=== PATIENT | female | born 1995 | race Caucasian/White ===

== ENCOUNTER 2022-05-16 21:31 | Emergency (ER) | payer SELFPAY ==
[2022-05-16 21:46] VITALS: BP 166/100; RESP 18; TEMP 36.8; O2SAT 96
--- NOTE | 2022-05-16 22:06 | ED.PSYCH ---
HPI - Psych General Chief Complaint: Psychiatric Problem/Disorder Stated Complaint: Mental Health Time Seen by Provider: 05/16/22 21:52 History of Present Illness HPI Narrative: This 26-year-old patient is brought in here by police for psychiatric evaluation. The patient states that she does not want to be here and was taken here by police only because her mother called the police and that she does not get along with her mother. Her father is currently working and from her mother. She states that she has stated his place at times but does not want to be any longer in the same apartment as her mother. There is report that the patient stated that she wanted to . When I asked for this she denies stating anything like that. She states that she has been hospitalized for her mood a couple years ago but denies ever attempting to harm herself and states that she does not have any plan to harm herself currently. She does state that she wants some help but she does not want to be in this emergency department. She denies using any street drugs or alcohol recently but states that she has used these in the past but not in the last couple days. She is not on any anti a depressant or other psychotropic medications. She does take an acne medication but otherwise no other meds. Review of Systems Status of ROS: Reports: 10 or more systems reviewed and unremarkable except as noted in History and below Narrative: Constitutional: No fevers, no weight gain or loss. Eyes: No discharge. No vision changes. HENT: No congestion, no sore throat, no ear pain. Cardiovascular: No chest pain, no palpitations. Respiratory: No shortness of breath, no wheezes, no cough. Gastrointestinal: No abdominal pain, no vomiting, no diarrhea. Genitourinary: No dysuria, no hematuria. Musculoskeletal: Normal range of motion. Skin: No rashes, no pruritis. On medication for acne. Neurological: No dizziness, weakness, sensory change, speech change. Endo/Heme/Allergies: No bruising or bleeding. No polydipsia. Pysch: no suicidality, no anxiety, no insomnia. She states that she does not need to be here and simply does not want to be in the same living situation as her mother as she does not get along with her. All other systems reviewed and are negative. PFSH PFSH Social History Smoking Status: Unknown if ever smoked Exam Narrative: Exam Narrative: Constitutional: Well-developed, well-nourished. HEENT: Normocephalic, atraumatic. Neck: Normal range of motion. Nontender. Supple. Heart: Regular. No murmurs. Normal rate. Intact distal pulses. Lungs: Clear to auscultation. No chest discomfort. No wheezes, rhonchi, or rales. Abdomen: Normal bowel sounds. Nontender. No rebound tenderness. Genitalia: Deferred. Back: No midline tenderness. Normal range of motion. Extremities: Normal range of motion. No injury. Skin: Intact. No rash. Warm. No erythema or pallor. Neurologic: No altered sensation. No weakness. Alert and oriented. Psychiatric: She denies suicidality. She repeatedly states that she does not want to be here and wants to go. Nursing notes and vitals signs are reviewed. Const: Vital Signs, click to edit/add: Vital Signs - 24 hr 05/16/22 21:46 Temperature 98.2 F Respiratory Rate 18 Blood Pressure [Ri ght Upper Arm] 166/100 H Pulse Oximetry 96 Oxygen Delivery Me thod Room Air Course Vital Signs Vital signs: Initial Vital Signs Temperature 98.2 F 05/16/22 21:46 Temperature Source Temporal Artery Scan 05/16/22 21:46 Respiratory Rate 18 05/16/22 21:46 Blood Pressure 166/100 H 05/16/22 21:46 Blood Pressure Mean 122 05/16/22 21:46 Pulse Oximetry 96 05/16/22 21:46 Oxygen Delivery Method Room Air 05/16/22 21:46 Vital Signs Temperature 98.2 F 05/16/22 21:46 Respiratory Rate 18 05/16/22 21:46 Blood Pressure 166/100 H 05/16/22 21:46 Pulse Oximetry 96 05/16/22 21:46 Oxygen Delivery Method Room Air 05/16/22 21:46 Temperature 98.2 F 05/16/22 21:46 Respiratory Rate 18 05/16/22 21:46 Blood Pressure 166/100 H 05/16/22 21:46 Pulse Oximetry 96 05/16/22 21:46 Oxygen Delivery Method Room Air 05/16/22 21:46 MDM - Psych MDM Narrative Medical decision making narrative: This patient is brought in by police department for psychiatric evaluation. The police were called by the patient's mother. The patient is rather animated that she does not need to be here and wants to go. I stated that we need to do our job in do an appropriate enough evaluation. She did agree to have a [facility] mental assessment. Collateral information is acquired from the patient's father who states that the mother truly is the 1 who is more in need of psychiatric evaluation and treatment. The patient herself denies any suicidality and is okay to be discharged from here. She will go with her friend and be able to stay there for a while until her father is home from work where she can join with him. Arrangements are also made for follow-up therapy appointment. Discharge Plan Discharge Clinical Impression: Encounter for psychiatric assessment Patient Disposition: Home w/ Parent or Adult Condition: Stable Additional Instructions: Follow-up with therapy arrangements as scheduled. Return if worsening. Follow Up/Referrals: Provider,Not a Local [Primary Care Provider] - Stand Alone Forms: [facility] Info Instructions
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
--- NOTE | 2022-05-16 23:58 | ED.NURSE ---
DC instructions reviewed with pt, pt verbalized understanding. As pt walked out of ER, she threw DC instructions in the garbage before heading to the lobby.
[2022-05-16 23:59] VITALS: BP 144/83; PULSE 94; O2SAT 98
== END 2022-05-16 23:59 | disposition home or self-care (01) ==
PROVIDERS: Emergency Provider Emergency Medicine Emergency Medical Services
DX: F99 Mental disorder, not otherwise specified (principal); Z04.6 Encounter for general psychiatric examination, requested by authority
CPT/HCPCS: 99283; 99284

== ENCOUNTER 2023-09-04 22:40 | Emergency (ER) | payer BC, SELFPAY ==
[2023-09-04 22:50] VITALS: BP 131/77; PULSE 105; RESP 18; TEMP 36.2; O2SAT 97; BMI 29.9
[2023-09-04] MEDS: lidocaine HCL 2 % MULTIDOSE 20 ML VIAL INJECTION (23:05)
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
[2023-09-04] MEDS: TETANUS/DIPHTH/PERTUSSIS 0.5 ML SYRINGE IM (23:23)
[2023-09-04 23:25] VITALS: BP 131/77; PULSE 99; RESP 18; TEMP 36.7
== END 2023-09-04 23:30 | disposition home or self-care (01) ==
LOC: ED 23:20
PROVIDERS: Emergency Provider Family Medicine
DX: S81.012A Laceration without foreign body, left knee, initial encounter (principal); V00.848A Other accident with standing micro-mobility pedestrian conveyance, initial encounter; Z23 Encounter for immunization
CPT/HCPCS: 12001; 90471; 90715; 99284